=== PATIENT | male | born 1970 | race Caucasian/White ===

== ENCOUNTER → 2016-12-09 08:10 | Outpatient (CLI) | payer OTHER ==
[2013-09-15 06:49] VITALS: BMI 20.2
[~2016-12-09 08:10] MED LIST: ATRIPLA TABLET1 TAB PO; BENTYL10 MG PO; HYDROCODON-ACE1 EAC7 PO; KALETRA 200-501 EACH PO; NEURONTIN600 MG PO; PAMELOR75 MG PO; TRIPLE ANTIB28.35 GM TP; ZANTAC300 MG PO
== END | disposition home or self-care (01) ==
LOC: D.CT 08:00
DX: N13.8 Other obstructive and reflux uropathy (principal); Z21 Asymptomatic human immunodeficiency virus [HIV] infection status

== ENCOUNTER 2018-02-02 16:09 | Emergency (ER) | payer OTHER ==
[~2018-02-02] VITALS: Ht 195.6 cm; Wt 80.9 kg
[2018-02-02 16:37] VITALS: Ht 195.6 cm; Wt 80.9 kg
[2018-02-02] MEDS ORDERED: INTELENCE100 MG PO (16:40)
[2018-02-02] MEDS ORDERED: COUMADIN2 MG PO (16:41)
[2018-02-02] MEDS ORDERED: EPIVIR150 MG PO (16:41)
[2018-02-02 17:37] LABS: BASOPHILS 0.1 % (0-2); EOSINOPHILS 0 % (0-7); HEMATOCRIT 38.2 % (42.0-54.0); HEMOGLOBIN 13.3 g/dL (13.5-17.5); IMMATURE GRANULOCYTES 0.2 % (0-5); LYMPHOCYTES 14.1 % (15-50); MCH 34.5 pg (26.0-34.0); MCHC 34.8 g/dL (31.0-37.0); MCV 99.2 fL (80.0-100.0); MEAN PLATELET VOLUME 13.5 fL (7.4-10.4); MONOCYTES 9.7 % (2-11); NEUTROPHILS 75.9 % (40-80); PLATELET COUNT 180 10x3/uL (130-400); RBC 3.85 10x6/uL (4.20-6.10); RDW 16.6 % (11.5-14.5); WBC 17.3 10x3/uL (4.8-10.8)
[2018-02-02 17:55] LABS: APTT 23.2 SECONDS (22.8-39.4); INR 0.99 (0.85-1.17); PROTIME 12.7 SECONDS (11.6-15.0)
[2018-02-02 17:56] LABS: D-DIMER-QUANTITATIVE 0.51 ug/mLFEU (0.20-0.54)
[2018-02-02 17:58] LABS: ALBUMIN 3.9 g/dL (3.4-5.0); ANION GAP 14.3 mmol/L (8-16); BILIRUBIN - TOTAL 0.43 mg/dL (0.2-1.3); CALCIUM 8.9 mg/dL (8.5-10.1); CARBON DIOXIDE 23.6 mmol/L (21.0-32.0); CREATININE - SERUM 2.1 mg/dL (0.6-1.3); POTASSIUM - SERUM 4.9 mmol/L (3.5-5.1); PROTEIN - SERUM 8.2 g/dL (6.4-8.2)
[2018-02-02 22:59] VITALS: BP 134/86
== END 2018-02-02 23:00 | disposition home or self-care (01) ==
LOC: D.ER 16:09 → EDBD 16:09 → D.ER 23:00
PROVIDERS: Emergency Medicine
DX: R07.81 Pleurodynia (principal); N18.9 Chronic kidney disease, unspecified; B19.20 Unspecified viral hepatitis C without hepatic coma; Z85.72 Personal history of non-Hodgkin lymphomas; Z86.711 Personal history of pulmonary embolism; Z79.01 Long term (current) use of anticoagulants; B20 Human immunodeficiency virus [HIV] disease